=== PATIENT | female | born 1995 | race Caucasian/White ===

== ENCOUNTER 2023-10-13 09:37 | Inpatient (IN) | payer MEDICAID, SELFPAY ==
[2023-10-13] MEDS ORDERED: hydrALAZINE 20 MG/ML VIAL SLOW IVP PRN ×3 (10:12→12:50)
[2023-10-13 10:24] LABS: Fetal Membranes Rupture RUPTURE DETECTED (No Rupture)
[2023-10-13] MEDS ORDERED: Penicillin G Potassium 5 MILL.UNITS VIAL ONE (10:45)
[2023-10-13] MEDS ORDERED: CEFAZOLIN 2 GM VIAL ONE (11:10)
[2023-10-13] MEDS ORDERED: Promethazine HCl 25 MG/ML VIAL IM PRN ×2 (11:13→15:46)
[2023-10-13] MEDS ORDERED: Ondansetron PF 4 MG/2 ML Vial IVP PRN ×3 (11:13→15:46)
[2023-10-13] MEDS ORDERED: Famotidine/PF 20 mg/2ml Vial SLOW IVP PRN (11:13)
[2023-10-13] MEDS ORDERED: Bicitra 30 ML UDCUP PO PRN (11:13)
[2023-10-13] MEDS ORDERED: CEFAZOLIN 2 GM in Sodium Chloride 0.9% 100 ML IVPB SCH (11:15)
[2023-10-13] MEDS ORDERED: Azithromycin 500 MG in Sodium Chloride 0.9% 250 ML 250 ML IVPB SCH (11:15)
[2023-10-13] MEDS ORDERED: Oxytocin 30 units/NS 500 ML 500 ML IV SCH (11:15)
[2023-10-13] MEDS ORDERED: Carboprost 250 MCG/ML AMP IM PRN (11:18)
[2023-10-13] MEDS ORDERED: Diphenoxylate HCl/Atropine Tablet PO PRN (11:18)
[2023-10-13] MEDS ORDERED: Methylergonovine 0.2 MG/ML VIAL IM PRN (11:18)
[2023-10-13] MEDS ORDERED: Tranexamic Acid 1,000 MG/10 ML VIAL IVP PRN (11:18)
[2023-10-13] MEDS ORDERED: Misoprostol 200 MCG TAB PR PRN (11:18)
[2023-10-13] MEDS ORDERED: fentaNYL 50 mcg/mL 1 mL Vial ONE (11:26)
[2023-10-13] MEDS ORDERED: Morphine PF 10 MG/10 ML VIAL ONE (11:26)
[2023-10-13] MEDS ORDERED: Bupivacaine 0.75% W/DEXTROSE 8.25% 2 ML AMP ONE (11:32)
[2023-10-13] MEDS ORDERED: Azithromycin 500 MG VIAL ONE (11:40)
[2023-10-13 11:48] LABS: Hematocrit 35.5 % (34.9-44.5); Hemoglobin 11.1 g/dL (12.0-15.5); Mean Corpuscular HGB CONC 31.3 g/dL (32.0-36.0); Mean Corpuscular Hemoglobin 25.5 pg (27.0-33.0); Mean Corpuscular Volume 81.4 fl (81.6-98.3); Mean Platelet Volume 10.8 fl (7.4-10.4); Platelet Count 284 10x3/uL (150-450); RBC Distribution Width 13.6 % (11.5-14.5); Red Blood Cell (RBC) Count 4.36 10x6/uL (3.90-5.03); White Blood Cell (WBC) Count 9.7 10x3/uL (3.5-10.5)
[2023-10-13 12:20] LABS: HBSAg Index 0.12 S/CO (0-0.99); Hep B Surf Ag - L&D Non-Reactive S/CO (NonReactive)
[2023-10-13 12:21] LABS: Syphilis Antibody Nonreactive (Nonreactive); Syphilis Antibody Index 0.04 S/CO (<1.00 Non-Reactive)
[2023-10-13] MEDS ORDERED: Promethazine HCl 25 MG/ML VIAL ONE (12:24)
[2023-10-13] MEDS ORDERED: Tranexamic Acid 1,000 MG/10 ML VIAL ONE (12:30)
[2023-10-13] MEDS ORDERED: Oxytocin 10 UNITS/ML VIAL ONE ×3 (12:37→12:39)
[2023-10-13] MEDS ORDERED: Phenylephrine 10 MG/ML VIAL ONE (12:37)
[2023-10-13] MEDS ORDERED: Ondansetron PF 4 MG/2 ML Vial ONE (12:37)
[2023-10-13] MEDS ORDERED: Dexamethasone 4 mg/ml Vial ONE (12:37)
[2023-10-13] MEDS ORDERED: Methylergonovine 0.2 MG/ML VIAL ONE (12:39)
[2023-10-13] MEDS ORDERED: ePHEDrine Sulfate 50 MG/10 ML VIAL ONE (12:39)
[2023-10-13] MEDS ORDERED: Carboprost 250 MCG/ML AMP ONE (12:39)
[2023-10-13 12:41] LABS: RapidComm Collect By CBN
[2023-10-13 12:42] LABS: RapidComm Collect By CBN; pH (Cord, venous) 7.284 (7.250-7.350)
[2023-10-13 12:43] LABS: RapidComm Collect By CBN
[2023-10-13] MEDS ORDERED: Zolpidem Tartrate 5 MG TAB PO PRN (12:50)
[2023-10-13] MEDS ORDERED: Simethicone Chewable 80 MG TAB PO PRN (12:50)
[2023-10-13] MEDS ORDERED: HYDROcodone/Acetaminophen 5/325 mg Tablet PO PRN (12:50)
[2023-10-13] MEDS ORDERED: Acetaminophen 325 MG TAB PO PRN (12:50)
[2023-10-13] MEDS ORDERED: Bisacodyl 10 MG SUPP PR PRN (12:50)
[2023-10-13 12:58] VITALS: BMI 30.5
[2023-10-13 14:00] LABS: INR-International Normal Ratio 0.9; PTT 30.1 sec (22.0-33.0)
[2023-10-13] MEDS ORDERED: Ibuprofen 800 MG TAB PO SCH (14:00)
[2023-10-13] MEDS ORDERED: Boostrix 0.5 ML (Tdap) VIAL (>/=7 yrs of age) IM ONE (15:00)
[2023-10-13] MEDS ORDERED: Meperidine HCl/PF 25 MG/ML VIAL SLOW IVP PRN (15:46)
[2023-10-13] MEDS ORDERED: Promethazine HCl 25 MG SUPP PR PRN (15:46)
[2023-10-13] MEDS ORDERED: Moisturizing Cream (Eucerin) 113 GM JAR TOP PRN (15:46)
[2023-10-13] MEDS ORDERED: diphenhydrAMINE 50 MG/ML VIAL IVP PRN (15:46)
[2023-10-13] MEDS ORDERED: HYDROmorphone 0.5 MG/0.5 ML SYRINGE SLOW IVP PRN (15:46)
[2023-10-13] MEDS ORDERED: Naloxone HCl 0.4 mg/ml Vial IV PRN (15:46)
[2023-10-13] MEDS ORDERED: Naloxone HCl 0.4 mg/ml Vial IVP PRN ×2 (15:46)
[2023-10-13] MEDS ORDERED: fentaNYL 50 mcg/mL 1 mL Vial SLOW IVP PRN (15:46)
[2023-10-13] MEDS ORDERED: Ketorolac Tromethamine 30 MG/ML VIAL IVP SCH (16:00)
[2023-10-13] MEDS ORDERED: Communication Order-Pharmacy FS SCH (16:00)
[2023-10-13 18:16] LABS: HIV (1/2) Antibody/Antigen Non-Reactive (NonReactive); HIV 1/2 INDEX 0.12 S/CO (<1.00)
[2023-10-13 18:39] LABS: #Monocytes 0.5 10x3/uL (0.0-1.1); #Neutrophils 15.6 10x3/uL (1.5-8.4); %Basophils 0.1 % (0.0-2.0); %Lymphocytes 6.3 % (18.0-47.0); Hemoglobin 10.7 g/dL (12.0-15.5); Mean Corpuscular HGB CONC 33.4 g/dL (32.0-36.0); Mean Corpuscular Volume 80.6 fl (81.6-98.3); Mean Platelet Volume 9.8 fl (7.4-10.4); Platelet Count 203 10x3/uL (150-450); RBC Distribution Width 13.7 % (11.5-14.5); Red Blood Cell (RBC) Count 3.97 10x6/uL (3.90-5.03); White Blood Cell (WBC) Count 17.3 10x3/uL (3.5-10.5)
[2023-10-13 20:45] LABS: HBSAB Concentration 260.48 mIU/mL; Hep B Surf AB Reactive (NonReactive)
[2023-10-13] MEDS: Docusate 100 MG CAP PO SCH (21:44)
[2023-10-14] MEDS: Lactated Ringer's 1,000 ML IV SCH ×4 (01:00→07:14)
[2023-10-14] MEDS: Ferrous Sulfate 325 MG TAB PO SCH ×3 (04:01→20:28)
[2023-10-14 04:32] LABS: Hematocrit 23.5 % (34.9-44.5); Hemoglobin 7.8 g/dL (12.0-15.5); Mean Corpuscular HGB CONC 33.2 g/dL (32.0-36.0); Mean Corpuscular Hemoglobin 27.1 pg (27.0-33.0); Mean Corpuscular Volume 81.6 fl (81.6-98.3); Mean Platelet Volume 10.3 fl (7.4-10.4); Platelet Count 152 10x3/uL (150-450); RBC Distribution Width 14.3 % (11.5-14.5); Red Blood Cell (RBC) Count 2.88 10x6/uL (3.90-5.03); White Blood Cell (WBC) Count 12.5 10x3/uL (3.5-10.5)
[2023-10-14] MEDS: Ketorolac Tromethamine 30 MG/ML VIAL IVP PRN ×2 (04:33→13:48)
[2023-10-14] MEDS: Docusate 100 MG CAP PO SCH ×2 (08:26→20:28)
[2023-10-14] MEDS: Prenatal Vitamin 1 TAB PO SCH (08:26)
[2023-10-14] MEDS ORDERED: HYDROcodone/Acetaminophen 5/325 mg Tablet PO PRN (14:35)
[2023-10-14 16:54] LABS: Hematocrit 27.3 % (34.9-44.5); Hemoglobin 9.5 g/dL (12.0-15.5); Mean Corpuscular HGB CONC 34.8 g/dL (32.0-36.0); Mean Corpuscular Hemoglobin 28.2 pg (27.0-33.0); Mean Platelet Volume 10.1 fl (7.4-10.4); Platelet Count 143 10x3/uL (150-450); RBC Distribution Width 14.6 % (11.5-14.5); Red Blood Cell (RBC) Count 3.37 10x6/uL (3.90-5.03); White Blood Cell (WBC) Count 14.3 10x3/uL (3.5-10.5)
[2023-10-14] MEDS: HYDROcodone/Acetaminophen 5/325 mg Tablet PO PRN (20:27)
[2023-10-14] MEDS: Ibuprofen 800 MG TAB PO SCH (22:18)
[2023-10-15] MEDS: Lactated Ringer's 1,000 ML IV SCH ×4 (04:22→21:34)
[2023-10-15] MEDS: HYDROcodone/Acetaminophen 5/325 mg Tablet PO PRN ×4 (06:17→18:05)
[2023-10-15] MEDS: Ibuprofen 800 MG TAB PO SCH ×3 (06:18→21:35)
[2023-10-15] MEDS: Prenatal Vitamin 1 TAB PO SCH (07:50)
[2023-10-15] MEDS: Docusate 100 MG CAP PO SCH ×2 (07:50→21:35)
[2023-10-15] MEDS: Ferrous Sulfate 325 MG TAB PO SCH ×2 (07:50→21:35)
[2023-10-16] MEDS: Lactated Ringer's 1,000 ML IV SCH ×2 (05:24→13:25)
[2023-10-16] MEDS: Ibuprofen 800 MG TAB PO SCH ×2 (05:25→13:26)
[2023-10-16 07:47] VITALS: BP 99/54; TEMP 97.7
[2023-10-16] MEDS: Prenatal Vitamin 1 TAB PO SCH (08:29)
[2023-10-16] MEDS: Docusate 100 MG CAP PO SCH (08:29)
[2023-10-16] MEDS: Ferrous Sulfate 325 MG TAB PO SCH (08:29)
== END 2023-10-16 13:45 | disposition home or self-care (01) | DRG 787 ==
LOC: CSHLD/OP 09:37 → CSHLD 11:13 → CSHPP 20:05
PROVIDERS: ADMIT Obstetrics & Gynecology; ATTEND Obstetrics & Gynecology
PROC: 10D00Z1 Extraction of Products of Conception, Low, Open Approach (ICD-10-PCS; principal; 2023-10-13)
PROC: 30233N1 Transfusion of Nonautologous Red Blood Cells into Peripheral Vein, Percutaneous Approach (ICD-10-PCS; 2023-10-13)
DX: O42.013 Preterm premature rupture of membranes, onset of labor within 24 hours of rupture, third trimester (principal); D62 Acute posthemorrhagic anemia; O72.1 Other immediate postpartum hemorrhage; Z3A.35 35 weeks gestation of pregnancy; O30.043 Twin pregnancy, dichorionic/diamniotic, third trimester; Z37.2 Twins, both liveborn; O32.1XX1 Maternal care for breech presentation, fetus 1; O32.1XX2 Maternal care for breech presentation, fetus 2; O26.53 Maternal hypotension syndrome, third trimester; O90.81 Anemia of the puerperium
CPT/HCPCS: 36415; 36430; 51702; 82805; 84112; 85027; 85384; 85610; 85730; 86706; 86762; 86780; 86850; 86900; 86901; 87340; 87389; 88307; 99285; J1100; J1885; J2210; J2274; J2370; J2405; J2540; J2550; J2590; J3010; J3490; J7120; P9016